=== PATIENT | male | born 1955 | race Caucasian/White ===

== ENCOUNTER → 2023-09-16 | Outpatient (CLI) | payer MEDICARE ==
[2023-09-16 14:34] LABS: Basophils # (A) 0.03 X 10*3/uL (0.00-0.10); Basophils % (A) 0.4 %; Eosinophils # (A) 0.12 X 10*3/uL (0.04-0.35); Eosinophils % (A) 1.8 %; HCT 40.6 % (39.6-50.0); Lymphocytes # (A) 1.65 X 10*3/uL (0.90-5.00); Lymphocytes % (A) 24.1 %; MCH 27.7 pg (27.0-32.0); MCV 86.4 FL (80.0-97.0); Mean Platelet Volume 10.6 FL (9.5-12.2); Monocytes # (A) 0.52 X 10*3/uL (0.20-1.00); Monocytes % (A) 7.6 %; NRBC Per 100 WBC 0 X 10*3/uL (0.00-0.01); Neutrophils # (A) 4.51 X 10*3/uL (1.80-7.70); Neutrophils % (A) 65.8 %; Platelet Count 261 X 10*3/uL (140-440); RDW 13.7 % (11.5-14.5); WBC 6.85 X 10*3/uL (4.50-10.00)
[2023-09-16 15:01] LABS: BUN/Creat Ratio 20.09 Ratio (12.00-20.00); Blood Urea Nitrogen 22.1 mg/dL (9.0-27.0); Calcium 9.9 mg/dL (8.7-10.3); Carbon Dioxide 27.3 mmol/L (21.6-31.8); Chloride 101 mmol/L (96-109); Glucose 88 mg/dL (70-110); Sodium 138 mmol/L (135-145)
== END | disposition home or self-care (01) ==
LOC: LABPAT 10:02
PROVIDERS: ATTEND Urology
DX: Z01.812 Encounter for preprocedural laboratory examination (principal); R97.20 Elevated prostate specific antigen [PSA]
CPT/HCPCS: 36415; 80048; 85025